=== PATIENT | female | born 1950 | race Caucasian/White ===

== ENCOUNTER 2016-09-03 13:41 | Inpatient (IN) | payer MEDICARE, MEDICAID ==
[~2016-09-03] VITALS: Ht 149.9 cm; Wt 63.0 kg
[~2016-09-03 13:41] MED LIST: ALBU18HF INH; GABA300C10 PO; HYDR-882 PO; LEVO100T5 PO; METF500T27 PO; OMEP40CA6 PO; PROP10TA PO; TRAM50TA2 PO
[2016-09-03] MEDS ORDERED: SODIUM CHLORIDE 0.9% 1,000 ML IV ONE (14:44)
[2016-09-03] MEDS ORDERED: ASPIRIN 81 MG TABLET CHEW PO ONE (15:00)
[2016-09-03] MEDS ORDERED: SODIUM CHLORIDE FLUSH 10ML SYR IVF ONE (15:00)
[2016-09-03] MEDS ORDERED: MECLIZINE CHEWABLE 25 MG TAB PO ONE (15:00)
[2016-09-03] MEDS ORDERED: SODIUM CHLORIDE 0.9% 1,000ML IVBOLUS ONE (15:00)
[2016-09-03 15:01] LABS: HEMOGLOBIN 15.2 g/dL (11.7-16.4)
[2016-09-03] MEDS ORDERED: MECLIZINE CHEWABLE 25 MG TAB ONE (15:03)
[2016-09-03] MEDS ORDERED: ASPIRIN 81 MG TABLET CHEW ONE (15:04)
[2016-09-03 15:13] LABS: ASPARTATE AMINO TRANSFERASE 20 U/L (15-37); BLOOD UREA NITROGEN 13 mg/dL (7-18)
[2016-09-03 15:19] LABS: IS PT STATUS REG ER OR PRE ER? YES
[2016-09-03] MEDS ORDERED: INSULIN REGULAR 100 UNITS/ML, 3ML VIAL IVPush ONE (16:00)
[2016-09-03] MEDS ORDERED: INSULIN SINGLE DOSE, ER SQ-INSULIN ONE (16:10)
[2016-09-03] MEDS ORDERED: [UNRECOGNIZED DRUG - REMARK] PO (16:53)
[2016-09-03] MEDS ORDERED: ENOXAPARIN 40 MG/0.4 ML SQ SCH (18:30)
[2016-09-03] MEDS ORDERED: LORazepam 2 MG/ML, 1ML IVPush PRN (18:30)
[2016-09-03] MEDS ORDERED: MORPHINE SULFATE 4 MG/ML, 1ML IVPush PRN (18:30)
[2016-09-03] MEDS ORDERED: ACETAMINOPHEN 325 MG TABLET PO PRN (18:30)
[2016-09-03] MEDS ORDERED: BISACODYL 10 MG SUPP PR PRN (18:30)
[2016-09-03] MEDS ORDERED: DOCUSATE 100 MG CAPSULE PO PRN (18:30)
[2016-09-03 18:48] VITALS: BP 137/64
[2016-09-03] MEDS: SODIUM CHLORIDE 0.9% 1,000 ML IV SCH (18:50)
[2016-09-03] MEDS ORDERED: ALBUTEROL SULFATE 2.5 MG/3 ML NPPB PRN (19:00)
[2016-09-03 19:11] VITALS: BP 130/80
[2016-09-03 19:31] LABS: IS PT STATUS REG ER OR PRE ER? NO
[2016-09-03] MEDS: INSULIN REGULAR 100 UNITS/ML, 3ML VIAL SQ-INSULIN SCH (21:00)
[2016-09-03] MEDS ORDERED: PROPRANOLOL 10 MG TABLET PO SCH (21:00)
[2016-09-03] MEDS: GABAPENTIN 300 MG CAPSULE PO SCH (21:19)
[2016-09-03] MEDS: metFORMIN 500 MG TABLET PO SCH (21:19)
[2016-09-04] MEDS: SODIUM CHLORIDE 0.9% 1,000 ML IV SCH (00:48)
[2016-09-04 01:00] LABS: IS PT STATUS REG ER OR PRE ER? NO
[2016-09-04 02:41] VITALS: BP 103/62
[2016-09-04 05:32] LABS: HEMOGLOBIN 13.3 g/dL (11.7-16.4)
[2016-09-04 06:00] LABS: ASPARTATE AMINO TRANSFERASE 12 U/L (15-37); BLOOD UREA NITROGEN 12 mg/dL (7-18)
[2016-09-04] MEDS ORDERED: ASPIRIN 325 MG TABLET EC PO SCH (06:00)
[2016-09-04] MEDS: INSULIN REGULAR 100 UNITS/ML, 3ML VIAL SQ-INSULIN SCH ×2 (07:03→11:55)
[2016-09-04] MEDS: metFORMIN 500 MG TABLET PO SCH (07:44)
[2016-09-04] MEDS: GABAPENTIN 300 MG CAPSULE PO SCH (07:49)
[2016-09-04 08:24] VITALS: BP 126/79
[2016-09-04] MEDS ORDERED: REGADENOSON 0.4 MG/5 ML SYRINGE ONE (08:24)
[2016-09-04] MEDS ORDERED: LEVOTHYROXINE 100 MCG TABLET PO SCH (09:00)
[2016-09-04] MEDS ORDERED: OMEPRAZOLE 20 MG CAPSULE.DR PO SCH (09:00)
[2016-09-04 13:37] VITALS: BP 125/76
[2016-09-04] MEDS ORDERED: ASPI-496 PO (13:44)
== END 2016-09-04 15:12 | disposition home or self-care (01) | DRG 638 ==
LOC: ED 14:58 → EDIP 16:16 → 5SO 18:38
PROVIDERS: ADMIT Internal Medicine; ATTEND Internal Medicine
DX: E11.649 Type 2 diabetes mellitus with hypoglycemia without coma (principal); E87.1 Hypo-osmolality and hyponatremia; E78.5 Hyperlipidemia, unspecified; E03.9 Hypothyroidism, unspecified; G89.29 Other chronic pain; M54.9 Dorsalgia, unspecified; K59.09 Other constipation; R25.1 Tremor, unspecified; D72.829 Elevated white blood cell count, unspecified; E11.42 Type 2 diabetes mellitus with diabetic polyneuropathy; K59.00 Constipation, unspecified; Z80.6 Family history of leukemia; Z90.89 Acquired absence of other organs; Z88.0 Allergy status to penicillin; M94.0 Chondrocostal junction syndrome [Tietze]; E86.0 Dehydration
CPT/HCPCS: 36415; 70450; 71010; 78452; 80053; 80061; 81003; 82962; 83735; 84100; 84443; 84484; 85025; 85379; 93005; 93017; 96361; 96374; J1650; J1815; J2785; A9502; C9898; J7030

== ENCOUNTER → 2017-02-14 | Outpatient (CLI) | payer MEDICARE, MEDICAID ==
[~2017-02-14] MED LIST changes: +ASPI-496 PO; +[UNRECOGNIZED DRUG - REMARK] PO
== END | disposition home or self-care (01) ==
LOC: CFH 12:49
PROVIDERS: ATTEND Internal Medicine
DX: M79.672 Pain in left foot (principal); M79.605 Pain in left leg

== ENCOUNTER 2017-06-26 15:38 | Observation (INO) | payer MEDICARE, MEDICAID ==
[~2017-06-26] VITALS: Ht 149.9 cm; Wt 61.4 kg
[2017-06-26] MEDS ORDERED: ALBUTEROL SULFATE 2.5 MG/3 ML ONE ×2 (16:26→18:51)
[2017-06-26] MEDS ORDERED: ALBUTEROL SULFATE 2.5 MG/3 ML NPPB ONE (16:30)
[2017-06-26 16:59] LABS: BASOPHILS # (AUTO) 0.05 x10^3/uL (0-0.1); BASOPHILS % (AUTO) 0 % (0-1); EOSINOPHILS # (AUTO) 0.21 x10^3/uL (0-0.4); EOSINOPHILS % (AUTO) 2 % (1-7); LYMPHOCYTES # (AUTO) 4.32 x10^3/uL (1-3.4); LYMPHOCYTES % (AUTO) 34 % (22-44); MD NO; MEAN CORPUSCULAR HEMOGLOBIN 27.9 pg (27.0-34.8); MEAN CORPUSCULAR HGB CONC 32.7 g/dL (32.4-35.8); MEAN CORPUSCULAR VOLUME 85.4 fL (80-100); MEAN PLATELET VOLUME 9.5 fL (7.4-10.4); MONOCYTES # (AUTO) 0.64 x10^3/uL (0.2-0.8); MONOCYTES % (AUTO) 5 % (2-9); NEUTROPHILS # (AUTO) 7.48 x10^3/uL (1.8-6.8); NEUTROPHILS % (AUTO) 59 % (42-75); PLATELET COUNT 345 x10^3/uL (130-400); RED BLOOD COUNT 5.75 x10^6/uL (3.82-5.3); RED CELL DISTRIBUTION WIDTH 14.8 % (9.6-15.2)
[2017-06-26 17:06] LABS: ALANINE AMINOTRANSFERASE 34 U/L (12-78); ALBUMIN 3.8 g/dL (3.4-5.0); ANION GAP 11 mmol/L (5-15); CALCIUM 8.9 mg/dL (8.5-10.1); CHLORIDE 108 mmol/L (98-107); CREATININE 0.79 mg/dL (0.55-1.02)
[2017-06-26 17:11] LABS: ALKALINE PHOSPHATASE 168 U/L (45-117); BILIRUBIN,TOTAL 0.3 mg/dL (0.2-1.0); TOTAL PROTEIN 7.4 g/dL (6.4-8.2); TROPONIN I < 0.015 ng/mL (0.000-0.045)
[2017-06-26] MEDS ORDERED: ACETAMINOPHEN 325 MG TABLET PO PRN (23:30)
[2017-06-26] MEDS ORDERED: ONDANSETRON 2MG/ML, 2ML IVPush PRN (23:30)
[2017-06-26] MEDS ORDERED: LACTATED RINGERS 1,000 ML IV SCH (23:30)
[2017-06-26 23:33] VITALS: BP 132/77
[2017-06-26] MEDS ORDERED: ALBUTEROL SULFATE 2.5 MG/3 ML NPPB PRN (23:45)
[2017-06-27] MEDS: GABAPENTIN 300 MG CAPSULE PO SCH ×3 (00:10→21:05)
[2017-06-27] MEDS: methylPREDNISolone SOD SUCC 40 MG/ML IV SCH ×2 (00:10→07:21)
[2017-06-27] MEDS: ENOXAPARIN 40 MG/0.4 ML SQ SCH ×2 (00:35→23:37)
[2017-06-27 02:50] VITALS: BP 113/60
[2017-06-27 05:57] LABS: BASOPHILS # (AUTO) 0.04 x10^3/uL (0-0.1); BASOPHILS % (AUTO) 0 % (0-1); EOSINOPHILS % (AUTO) 0 % (1-7); LYMPHOCYTES # (AUTO) 1.72 x10^3/uL (1-3.4); LYMPHOCYTES % (AUTO) 15 % (22-44); MD NO; MEAN CORPUSCULAR HEMOGLOBIN 28.3 pg (27.0-34.8); MEAN CORPUSCULAR HGB CONC 33.5 g/dL (32.4-35.8); MEAN CORPUSCULAR VOLUME 84.6 fL (80-100); MEAN PLATELET VOLUME 9.5 fL (7.4-10.4); MONOCYTES # (AUTO) 0.14 x10^3/uL (0.2-0.8); MONOCYTES % (AUTO) 1 % (2-9); NEUTROPHILS # (AUTO) 9.57 x10^3/uL (1.8-6.8); NEUTROPHILS % (AUTO) 84 % (42-75); PLATELET COUNT 309 x10^3/uL (130-400); RED BLOOD COUNT 5.48 x10^6/uL (3.82-5.3); RED CELL DISTRIBUTION WIDTH 14.9 % (9.6-15.2)
[2017-06-27 05:58] LABS: ANION GAP 17 mmol/L (5-15); CHLORIDE 104 mmol/L (98-107)
[2017-06-27 06:01] LABS: CALCIUM 9.1 mg/dL (8.5-10.1); CREATININE 1.04 mg/dL (0.55-1.02)
[2017-06-27 06:35] VITALS: BP 123/71
[2017-06-27] MEDS: metFORMIN XR 500 MG TAB.ER.24H PO SCH ×2 (08:32→21:05)
[2017-06-27] MEDS: OMEPRAZOLE 20 MG CAPSULE.DR PO SCH (08:32)
[2017-06-27] MEDS: LEVOTHYROXINE 100 MCG TABLET PO SCH (08:32)
[2017-06-27] MEDS: ASPIRIN 81 MG TABLET EC PO SCH (08:32)
[2017-06-27] MEDS: INSULIN LISPRO 100 UNITS/ML, PEN SQ-INSULIN SCH ×4 (09:17→21:06)
[2017-06-27 12:00] VITALS: BP 126/85
[2017-06-27 20:09] VITALS: BP 126/69
[2017-06-27] MEDS ORDERED: PROPRANOLOL 10 MG TABLET PO SCH (21:00)
[2017-06-27] MEDS ORDERED: LACTATED RINGERS 1,000 ML IV SCH (23:30)
[2017-06-28 02:45] VITALS: BP 108/68
[2017-06-28 06:05] LABS: ANION GAP 9 mmol/L (5-15); CALCIUM 9.5 mg/dL (8.5-10.1); CHLORIDE 108 mmol/L (98-107)
[2017-06-28 07:00] VITALS: BP 120/72
[2017-06-28] MEDS: INSULIN LISPRO 100 UNITS/ML, PEN SQ-INSULIN SCH ×3 (08:17→12:39)
[2017-06-28] MEDS: ASPIRIN 81 MG TABLET EC PO SCH (08:18)
[2017-06-28] MEDS: metFORMIN XR 500 MG TAB.ER.24H PO SCH (08:18)
[2017-06-28] MEDS: LEVOTHYROXINE 100 MCG TABLET PO SCH (08:18)
[2017-06-28] MEDS: GABAPENTIN 300 MG CAPSULE PO SCH (08:18)
[2017-06-28] MEDS: OMEPRAZOLE 20 MG CAPSULE.DR PO SCH (08:18)
[2017-06-28] MEDS ORDERED: PRED20TA PO (09:35)
[2017-06-28] MEDS ORDERED: ALBU18HF INH (09:35)
== END 2017-06-28 14:21 | disposition home or self-care (01) ==
LOC: ED 19:26 → INTOOBSV 22:32 → 3NE 22:32 → SUATTDRO 23:28 → DCLOUNGE 06-28 14:16
PROVIDERS: ADMIT Hospitalist; ATTEND Hospitalist
DX: R07.89 Other chest pain (principal); R06.02 Shortness of breath; R42 Dizziness and giddiness; E03.9 Hypothyroidism, unspecified; E11.40 Type 2 diabetes mellitus with diabetic neuropathy, unspecified; E78.5 Hyperlipidemia, unspecified; D72.829 Elevated white blood cell count, unspecified; N28.9 Disorder of kidney and ureter, unspecified; Z77.22 Contact with and (suspected) exposure to environmental tobacco smoke (acute) (chronic)
CPT/HCPCS: 36415; 71045; 80048; 80053; 82947; 82962; 83735; 84100; 84484; 85025; 93306; 94640; 96361; 96372; 96374; 96376; 99285; G0378; J1650; J1815; J2920; J7120; J7512; J7613

== ENCOUNTER 2018-08-30 23:26 | Inpatient (IN) | payer MEDICARE, MEDICAID ==
[~2018-08-30] VITALS: Ht 149.9 cm; Wt 71.1 kg
[~2018-08-30 23:26] MED LIST changes: +HYDR-3653 PO; -HYDR-882 PO; +PRED20TA PO; -PROP10TA PO; +PROP10TA16 PO
--- NOTE | 2018-08-30 23:54 | NUR ---
Lab at bedside.
--- NOTE | 2018-08-30 23:58 | NUR ---
Pt sitting on gurney, moaning and c/o pain. Pt states that appx 2 hours she started having severe abdominal pain to the right side, pt describes it as constant but sometimes more sharp. Pt states that she immediately vomited and had diarrhea when the pain started. Pt still c/o nausea but has not vomited again. Pt states that she had diarrhea persistently prior to coming in to ED. Pt denies any urinary symptoms. Pt denies any previous surgeries or abdominal history. Pt's daughter, Ana, at bedside with pt.
[2018-08-31] MEDS ORDERED: ONDANSETRON 2MG/ML, 2ML IVPush ONE
[2018-08-31 00:01] LABS: MEAN CORPUSCULAR HEMOGLOBIN 29.3 pg (27.0-34.8); MEAN CORPUSCULAR HGB CONC 33.5 g/dL (32.4-35.8); MEAN CORPUSCULAR VOLUME 87.6 fL (80-100); MEAN PLATELET VOLUME 9.2 fL (7.4-10.4); PLATELET COUNT 277 x10^3/uL (130-400); RED BLOOD COUNT 5.42 x10^6/uL (3.82-5.3); RED CELL DISTRIBUTION WIDTH 15.4 % (9.6-15.2)
--- NOTE | 2018-08-31 00:10 | NUR ---
Ailyn DU, at bedside to reassess pt. IVF bolus and BC x 2 added to orders.
[2018-08-31 00:13] LABS: ALANINE AMINOTRANSFERASE 39 U/L (12-78); ALBUMIN 4.1 g/dL (3.4-5.0); ANION GAP 8 mmol/L (5-15); CALCIUM 9.1 mg/dL (8.5-10.1); CHLORIDE 106 mmol/L (98-107); CREATININE 1.06 mg/dL (0.55-1.02)
[2018-08-31 00:15] LABS: MD YES
[2018-08-31 00:16] LABS: BAND#(MANUAL) 2.67 x10^3/uL; BANDS%(MANUAL) 14 % (0-7); LYMPH#(MANUAL) 1.34 x10^3/uL (1-3.4); LYMPHS% (MANUAL) 7 % (22-44); MONOS#(MANUAL) 0.96 x10^3/uL (0.3-2.7); MONOS% (MANUAL) 5 % (2-9); SEG#(MANUAL) 14.13 x10^3/uL (1.8-6.8); SEGS% (MANUAL) 74 % (42-75)
[2018-08-31 00:17] LABS: <PLATELET ESTIMATE> ADEQUATE; <PLT MORPHOLOGY> NORMAL PLT MORPH; <RBC MORPHOLOGY> NORMAL
[2018-08-31 00:18] LABS: ALKALINE PHOSPHATASE 197 U/L (45-117); TOTAL PROTEIN 7.3 g/dL (6.4-8.2); TROPONIN I < 0.015 ng/mL (0.000-0.045)
[2018-08-31] MEDS ORDERED: MORPHINE SULFATE 4 MG/ML, 1ML ONE ×2 (00:18→00:34)
[2018-08-31] MEDS ORDERED: ONDANSETRON 2MG/ML, 2ML ONE ×2 (00:18→14:51)
--- NOTE | 2018-08-31 00:22 | NUR ---
PIV started, BC drawn. Lab at bedside for 2nd set of BC. IVF to be started and pt to be medicated per MAR.
[2018-08-31] MEDS: MORPHINE SULFATE 4 MG/ML, 1ML IVPush PRN ×2 (00:25→00:41)
[2018-08-31] MEDS ORDERED: SODIUM CHLORIDE 0.9% 1,000ML IVBOLUS ONE (00:30)
--- NOTE | 2018-08-31 00:41 | NUR ---
Pt medicated with 2nd dose of morphine. Pt to imaging, with tech, via marisol.
--- NOTE | 2018-08-31 00:52 | NUR ---
Pt back to room from imaging.
[2018-08-31] MEDS ORDERED: HYDROmorphone 1 MG/ML, 1ML INJ ONE (01:19)
--- NOTE | 2018-08-31 01:26 | NUR ---
Pt medicated per MAR. Urine sample collected.
--- NOTE | 2018-08-31 01:28 | NUR ---
Pt to imaging, with tech, via gudayday.
[2018-08-31] MEDS: HYDROmorphone 2 MG/ML, 1ML IVPush PRN ×7 (01:33→20:57)
[2018-08-31] MEDS ORDERED: HYDROmorphone 2 MG/ML, 1ML ONE ×2 (02:20→03:30)
--- NOTE | 2018-08-31 02:25 | NUR ---
Pt medicated, per AUG, with 2nd dose of dilaudid.
[2018-08-31] MEDS ORDERED: CEFOTETAN PMX 1GM/50ML 50 ML IV ONE (02:30)
[2018-08-31 02:44] LABS: CULTURE INDICATED? NO; MICROSCOPIC NOT IND
[2018-08-31] MEDS ORDERED: CEFOTETAN PMX 1GM/50ML 50 ML ONE (02:44)
--- NOTE | 2018-08-31 02:50 | NUR ---
Telephone SBAR report given to RNMarleen. Pt and daughter made aware of new room assignment.
--- NOTE | 2018-08-31 02:50 | NUR ---
SILVER RN: PT MEDICATED PER EMAR. 5 RIGHTS ADDRESSED.
[2018-08-31] MEDS ORDERED: LABETALOL 5MG/ML, 20ML IVPush PRN (03:30)
[2018-08-31] MEDS ORDERED: HYDROmorphone 1 MG/ML, 1ML INJ IV ONE (03:30)
[2018-08-31] MEDS ORDERED: ACETAMINOPHEN 325 MG TABLET PO PRN (03:30)
[2018-08-31 03:36] VITALS: BP 147/84
[2018-08-31 03:47] LABS: PROTHROMBIN TIME 10.5 Seconds (9.6-11.5)
[2018-08-31] MEDS ORDERED: PIPERACILLIN/TAZO/PMX 3.375GM 50 ML IV SCH (04:00)
[2018-08-31] MEDS: LACTATED RINGERS 1,000 ML IV SCH ×3 (04:01→17:07)
[2018-08-31] MEDS ORDERED: OMNIPAQUE 350 MG/ML, 100ML BOTTLE ONE (05:50)
[2018-08-31 08:14] VITALS: BP 140/84
[2018-08-31 08:40] LABS: ALANINE AMINOTRANSFERASE 35 U/L (12-78); ALBUMIN 3.6 g/dL (3.4-5.0); ANION GAP 12 mmol/L (5-15); CALCIUM 8.5 mg/dL (8.5-10.1); CHLORIDE 112 mmol/L (98-107)
[2018-08-31 08:42] LABS: ALKALINE PHOSPHATASE 177 U/L (45-117); BILIRUBIN,TOTAL 0.6 mg/dL (0.2-1.0); TOTAL PROTEIN 6.9 g/dL (6.4-8.2)
[2018-08-31] MEDS: INSULIN LISPRO 100 UNITS/ML, PEN SQ-INSULIN SCH ×4 (09:14→21:00)
[2018-08-31] MEDS: METRONIDAZOLE PMX 500MG/100ML 100 ML IV SCH ×2 (09:14→17:07)
[2018-08-31] MEDS ORDERED: LEVOFLOXACIN/PMX 750MG/150ML 150 ML IV SCH (10:00)
[2018-08-31 10:04] LABS: MEAN CORPUSCULAR HEMOGLOBIN 28.7 pg (27.0-34.8); MEAN CORPUSCULAR HGB CONC 32.6 g/dL (32.4-35.8); MEAN CORPUSCULAR VOLUME 87.9 fL (80-100); MEAN PLATELET VOLUME 9.4 fL (7.4-10.4); PLATELET COUNT 248 x10^3/uL (130-400); RED BLOOD COUNT 5.44 x10^6/uL (3.82-5.3)
[2018-08-31] MEDS ORDERED: PROPRANOLOL 40 MG TABLET ONE (10:28)
[2018-08-31] MEDS ORDERED: PROPRANOLOL 10 MG TABLET PO SCH ×2 (10:30→21:00)
[2018-08-31 10:36] LABS: BASOPHILS # (AUTO) 0.01 x10^3/uL (0-0.1); BASOPHILS % (AUTO) 0 % (0-1); EOSINOPHILS % (AUTO) 0 % (1-7); LYMPHOCYTES # (AUTO) 0.91 x10^3/uL (1-3.4); LYMPHOCYTES % (AUTO) 6 % (22-44); MD SCAN; MONOCYTES # (AUTO) 0.53 x10^3/uL (0.2-0.8); MONOCYTES % (AUTO) 3 % (2-9); NEUTROPHILS % (AUTO) 91 % (42-75)
[2018-08-31 11:00] VITALS: BP 118/67
[2018-08-31] MEDS ORDERED: PHENYLEPHRINE 10 MG/ML ONE (11:09)
[2018-08-31] MEDS ORDERED: FENTANYL PF 250 MCG/5ML ONE (12:27)
[2018-08-31] MEDS ORDERED: BUPIVACAINE/PF-EPI 0.5% 1:200K ONE (12:39)
[2018-08-31] MEDS ORDERED: BUPIVACAINE/PF-EPI 0.5% 1:200K INFIL ONE (13:16)
[2018-08-31] MEDS ORDERED: MIDAZOLAM 1 MG/ML, 2ML IV PRN (13:30)
[2018-08-31] MEDS ORDERED: PROMETHAZINE 25 MG/ML, 1ML IV PRN (13:30)
[2018-08-31] MEDS ORDERED: OXYcodone 5 MG/5 ML ORAL.SOL UDC PO PRN (13:30)
[2018-08-31] MEDS ORDERED: MEPERIDINE/PF 25MG/0.5ML IVPush PRN (13:30)
[2018-08-31] MEDS ORDERED: HYDROmorphone 2 MG/ML, 1ML IVPush PRN (13:30)
[2018-08-31] MEDS ORDERED: ALBUTEROL/IPRATROPIUM 2.5MG/0.5MG, 3 ML NPPB PRN (13:30)
[2018-08-31] MEDS ORDERED: SCOPOLAMINE PATCH, 1.5MG PATCH.TD72 TD PRN (13:30)
[2018-08-31] MEDS ORDERED: METOPROLOL 1 MG/ML, 5ML IV PRN (13:30)
[2018-08-31] MEDS ORDERED: ONDANSETRON 2MG/ML, 2ML IV PRN (13:30)
[2018-08-31] MEDS ORDERED: THROMBIN 20,000 UNIT VIAL TP ONE (14:17)
[2018-08-31] MEDS ORDERED: ROCURONIUM 10MG/ML,5ML ONE (14:51)
[2018-08-31] MEDS ORDERED: NEOSTIGMINE 1 MG/ML, 10ML ONE (14:51)
[2018-08-31] MEDS ORDERED: PROPOFOL 10 MG/ML, 20ML ONE (14:51)
[2018-08-31] MEDS ORDERED: SUCCINYLCHOLINE 20 MG/ML, 10ML ONE (14:51)
[2018-08-31] MEDS ORDERED: DEXAMETHASONE 4 MG/ML, 1ML ONE (14:51)
[2018-08-31] MEDS ORDERED: GLYCOPYRROLATE 0.2MG/1ML, 5ML ONE (14:51)
[2018-08-31] MEDS ORDERED: ACETAMINOPHEN 650 MG/20.3 ML UDC ONE (15:11)
[2018-08-31] MEDS ORDERED: OXYcodone 5 MG/5 ML ORAL.SOL UDC ONE (15:11)
[2018-08-31] MEDS ORDERED: FENTANYL PF 100 MCG/2ML ONE ×2 (15:11→16:03)
[2018-08-31] MEDS: FENTANYL PF 100 MCG/2ML IV PRN ×3 (15:15→15:30)
[2018-08-31 16:25] VITALS: BP 94/67
[2018-08-31] MEDS: ACETAMINOPHEN 500 MG TABLET PO SCH ×2 (16:30→20:57)
[2018-08-31 18:51] VITALS: BP 100/59
[2018-08-31] MEDS: OXYcodone IR 5MG TABLET PO PRN ×2 (19:37→22:49)
[2018-08-31 23:00] VITALS: BP 113/86
[2018-09-01] MEDS: METRONIDAZOLE PMX 500MG/100ML 100 ML IV SCH ×3 (01:08→16:20)
[2018-09-01] MEDS: LACTATED RINGERS 1,000 ML IV SCH ×3 (01:08→20:48)
[2018-09-01 03:44] VITALS: BP 99/64
[2018-09-01] MEDS: OXYcodone IR 5MG TABLET PO PRN ×4 (03:58→20:47)
[2018-09-01] MEDS: ACETAMINOPHEN 500 MG TABLET PO SCH ×2 (03:58→10:53)
[2018-09-01 06:14] LABS: CALCIUM 8.3 mg/dL (8.5-10.1); CHLORIDE 113 mmol/L (98-107); MEAN CORPUSCULAR HEMOGLOBIN 28.9 pg (27.0-34.8); MEAN CORPUSCULAR HGB CONC 32.6 g/dL (32.4-35.8); MEAN CORPUSCULAR VOLUME 88.4 fL (80-100); MEAN PLATELET VOLUME 9.8 fL (7.4-10.4); PLATELET COUNT 254 x10^3/uL (130-400); RED BLOOD COUNT 4.32 x10^6/uL (3.82-5.3)
[2018-09-01 06:19] LABS: ALANINE AMINOTRANSFERASE 109 U/L (12-78); ALBUMIN 2.5 g/dL (3.4-5.0); ALKALINE PHOSPHATASE 105 U/L (45-117); ANION GAP 9 mmol/L (5-15); BILIRUBIN,TOTAL 0.6 mg/dL (0.2-1.0); CHOL/HDL RATIO 3.7; CHOLESTEROL, TOTAL 82 mg/dL (140-239); CREATININE 0.79 mg/dL (0.55-1.02); HDL CHOL % 27 % (28-40); HDL CHOLESTEROL (DIRECT) 22 mg/dL (40-60); LDL CHOLESTEROL,CALCULATED 44 mg/dL (54-169); TOTAL PROTEIN 5.7 g/dL (6.4-8.2); TRIGLYCERIDES 78 mg/dL (50-200); VLDL CHOLESTEROL 16 mg/dL (0-25)
[2018-09-01 06:41] LABS: MD YES
[2018-09-01 06:43] LABS: BAND#(MANUAL) 1.84 x10^3/uL; BANDS%(MANUAL) 10 % (0-7); LYMPH#(MANUAL) 0.55 x10^3/uL (1-3.4); LYMPHS% (MANUAL) 3 % (22-44); MONOS#(MANUAL) 0.37 x10^3/uL (0.3-2.7); MONOS% (MANUAL) 2 % (2-9); SEG#(MANUAL) 15.64 x10^3/uL (1.8-6.8); SEGS% (MANUAL) 85 % (42-75)
[2018-09-01 06:44] LABS: <PLATELET ESTIMATE> ADEQUATE; <PLT MORPHOLOGY> NORMAL PLT MORPH; <RBC MORPHOLOGY> NORMAL
[2018-09-01] MEDS: INSULIN LISPRO 100 UNITS/ML, PEN SQ-INSULIN SCH ×4 (06:50→21:17)
[2018-09-01 07:40] VITALS: BP 103/53
[2018-09-01] MEDS: ENOXAPARIN 40 MG/0.4 ML SQ SCH (12:11)
[2018-09-01] MEDS ORDERED: ACETAMINOPHEN 500 MG TABLET PO PRN (12:30)
[2018-09-01 13:57] VITALS: BP 99/58
[2018-09-01] MEDS: PROPRANOLOL 10 MG TABLET PO SCH (20:48)
[2018-09-01 20:56] VITALS: BP 132/71
[2018-09-02] MEDS: METRONIDAZOLE PMX 500MG/100ML 100 ML IV SCH ×3 (01:10→17:29)
[2018-09-02] MEDS: OXYcodone IR 5MG TABLET PO PRN ×5 (01:11→20:44)
[2018-09-02 01:14] VITALS: BP 106/59
[2018-09-02] MEDS: LACTATED RINGERS 1,000 ML IV SCH ×4 (05:06→23:29)
[2018-09-02 05:46] LABS: BASOPHILS # (AUTO) 0.02 x10^3/uL (0-0.1); BASOPHILS % (AUTO) 0 % (0-1); EOSINOPHILS % (AUTO) 0 % (1-7); LYMPHOCYTES # (AUTO) 1.47 x10^3/uL (1-3.4); LYMPHOCYTES % (AUTO) 9 % (22-44); MD NO; MEAN CORPUSCULAR HGB CONC 33.8 g/dL (32.4-35.8); MEAN CORPUSCULAR VOLUME 88.7 fL (80-100); MEAN PLATELET VOLUME 9.5 fL (7.4-10.4); MONOCYTES # (AUTO) 0.26 x10^3/uL (0.2-0.8); MONOCYTES % (AUTO) 2 % (2-9); NEUTROPHILS # (AUTO) 14.34 x10^3/uL (1.8-6.8); NEUTROPHILS % (AUTO) 89 % (42-75); PLATELET COUNT 223 x10^3/uL (130-400); RED BLOOD COUNT 3.75 x10^6/uL (3.82-5.3)
[2018-09-02 05:49] LABS: ALANINE AMINOTRANSFERASE 64 U/L (12-78); ALBUMIN 2.1 g/dL (3.4-5.0); ANION GAP 5 mmol/L (5-15); CALCIUM 8.5 mg/dL (8.5-10.1); CHLORIDE 111 mmol/L (98-107)
[2018-09-02 05:50] LABS: ALKALINE PHOSPHATASE 102 U/L (45-117); BILIRUBIN,TOTAL 0.6 mg/dL (0.2-1.0); TOTAL PROTEIN 5.3 g/dL (6.4-8.2)
[2018-09-02] MEDS: INSULIN LISPRO 100 UNITS/ML, PEN SQ-INSULIN SCH ×4 (07:53→20:44)
[2018-09-02 08:07] VITALS: BP 112/59
[2018-09-02] MEDS ORDERED: LEVOFLOXACIN/PMX 750MG/150ML 150 ML IV SCH (10:00)
[2018-09-02] MEDS ORDERED: POTASSIUM CHLORIDE 20 MEQ TAB.ER.PRT PO ONE (10:30)
[2018-09-02] MEDS: ENOXAPARIN 40 MG/0.4 ML SQ SCH (12:21)
[2018-09-02 13:32] VITALS: BP 105/71
[2018-09-02] MEDS: ONDANSETRON 2MG/ML, 2ML IVPush PRN ×2 (14:10→20:47)
[2018-09-02 20:23] VITALS: BP 104/60
[2018-09-02] MEDS: PROPRANOLOL 10 MG TABLET PO SCH (20:41)
[2018-09-03] MEDS: METRONIDAZOLE PMX 500MG/100ML 100 ML IV SCH ×4 (01:04→20:40)
[2018-09-03] MEDS: OXYcodone IR 5MG TABLET PO PRN ×6 (01:04→20:39)
[2018-09-03 02:19] VITALS: BP 106/62
[2018-09-03 02:53] LABS: CLOSTRIDIUM DIFFICILE ANTIGEN NEGATIVE; CLOSTRIDIUM DIFFICILE TOXIN NEGATIVE (Negative)
[2018-09-03 05:35] LABS: MEAN CORPUSCULAR HEMOGLOBIN 29.2 pg (27.0-34.8); MEAN CORPUSCULAR HGB CONC 33.3 g/dL (32.4-35.8); MEAN CORPUSCULAR VOLUME 87.7 fL (80-100); MEAN PLATELET VOLUME 9.5 fL (7.4-10.4); PLATELET COUNT 230 x10^3/uL (130-400); RED BLOOD COUNT 3.44 x10^6/uL (3.82-5.3)
[2018-09-03 05:48] LABS: CALCIUM 8.2 mg/dL (8.5-10.1); CHLORIDE 111 mmol/L (98-107)
[2018-09-03 05:54] LABS: ALANINE AMINOTRANSFERASE 49 U/L (12-78); ALKALINE PHOSPHATASE 102 U/L (45-117); ANION GAP 7 mmol/L (5-15); BILIRUBIN,TOTAL 0.5 mg/dL (0.2-1.0); CREATININE 0.49 mg/dL (0.55-1.02); TOTAL PROTEIN 5.2 g/dL (6.4-8.2)
[2018-09-03 06:08] LABS: BASOPHILS # (AUTO) 0.01 x10^3/uL (0-0.1); BASOPHILS % (AUTO) 0 % (0-1); EOSINOPHILS # (AUTO) 0.06 x10^3/uL (0-0.4); EOSINOPHILS % (AUTO) 0 % (1-7); LYMPHOCYTES # (AUTO) 2.62 x10^3/uL (1-3.4); LYMPHOCYTES % (AUTO) 16 % (22-44); MD SCAN; MONOCYTES # (AUTO) 0.51 x10^3/uL (0.2-0.8); MONOCYTES % (AUTO) 3 % (2-9); NEUTROPHILS # (AUTO) 13.21 x10^3/uL (1.8-6.8); NEUTROPHILS % (AUTO) 81 % (42-75)
[2018-09-03] MEDS: INSULIN LISPRO 100 UNITS/ML, PEN SQ-INSULIN SCH ×4 (07:04→20:43)
[2018-09-03 07:38] VITALS: BP 98/61
[2018-09-03] MEDS: LACTATED RINGERS 1,000 ML IV SCH (08:42)
[2018-09-03] MEDS: ENOXAPARIN 40 MG/0.4 ML SQ SCH (11:56)
[2018-09-03] MEDS: CEFTRIAXONE PMX 2GM/50ML 50 ML IV SCH (11:56)
[2018-09-03 14:43] VITALS: BP 109/59
[2018-09-03] MEDS: PROPRANOLOL 10 MG TABLET PO SCH (20:39)
[2018-09-03 20:50] VITALS: BP 123/58
[2018-09-04 01:33] VITALS: BP 122/65
[2018-09-04] MEDS: METRONIDAZOLE PMX 500MG/100ML 100 ML IV SCH ×2 (02:39→08:55)
[2018-09-04] MEDS: OXYcodone IR 5MG TABLET PO PRN ×2 (03:53→20:06)
[2018-09-04 05:08] LABS: ALANINE AMINOTRANSFERASE 33 U/L (12-78); ALBUMIN 1.8 g/dL (3.4-5.0); ANION GAP 10 mmol/L (5-15); CALCIUM 7.9 mg/dL (8.5-10.1); CHLORIDE 110 mmol/L (98-107); CREATININE 0.37 mg/dL (0.55-1.02)
[2018-09-04 05:11] LABS: ALKALINE PHOSPHATASE 103 U/L (45-117); BILIRUBIN,TOTAL 0.4 mg/dL (0.2-1.0); TOTAL PROTEIN 5.1 g/dL (6.4-8.2)
[2018-09-04 06:28] LABS: MEAN CORPUSCULAR HEMOGLOBIN 28.9 pg (27.0-34.8); MEAN CORPUSCULAR HGB CONC 33.4 g/dL (32.4-35.8); MEAN CORPUSCULAR VOLUME 86.5 fL (80-100); MEAN PLATELET VOLUME 8.5 fL (7.4-10.4); PLATELET COUNT 262 x10^3/uL (130-400); RED BLOOD COUNT 3.81 x10^6/uL (3.82-5.3); RED CELL DISTRIBUTION WIDTH 16.4 % (9.6-15.2)
[2018-09-04 06:58] LABS: MD YES
[2018-09-04 07:02] LABS: BAND#(MANUAL) 0.98 x10^3/uL; BANDS%(MANUAL) 8 % (0-7); EOS#(MANUAL) 0.25 x10^3/uL (0.0-0.4); EOS% (MANUAL) 2 % (1-7); LYMPH#(MANUAL) 2.34 x10^3/uL (1-3.4); LYMPHS% (MANUAL) 19 % (22-44); METAMYELOCYTES# (MANUAL) 0.25 x10^3/uL (0-0); METAMYELOCYTES% (MANUAL) 2 % (0-1); MONOS#(MANUAL) 0.74 x10^3/uL (0.3-2.7); MONOS% (MANUAL) 6 % (2-9); SEG#(MANUAL) 7.75 x10^3/uL (1.8-6.8); SEGS% (MANUAL) 63 % (42-75)
[2018-09-04 07:03] LABS: <PLATELET ESTIMATE> ADEQUATE; <PLT MORPHOLOGY> NORMAL PLT MORPH; <RBC MORPHOLOGY> NORMAL
[2018-09-04] MEDS: INSULIN LISPRO 100 UNITS/ML, PEN SQ-INSULIN SCH ×4 (07:13→21:00)
[2018-09-04 08:12] VITALS: BP 130/62
[2018-09-04] MEDS: ONDANSETRON 2MG/ML, 2ML IVPush PRN (09:07)
[2018-09-04] MEDS: ENOXAPARIN 40 MG/0.4 ML SQ SCH (12:06)
[2018-09-04] MEDS: CEFTRIAXONE PMX 2GM/50ML 50 ML IV SCH (12:06)
[2018-09-04] MEDS ORDERED: POTASSIUM CHLORIDE 20 MEQ TAB.ER.PRT PO ONE (14:30)
[2018-09-04 14:49] VITALS: BP 117/73
[2018-09-04] MEDS: metroNIDAZOLE 500 MG TABLET PO SCH ×2 (14:55→20:05)
[2018-09-04] MEDS: GABAPENTIN 300 MG CAPSULE PO PRN (17:18)
[2018-09-04] MEDS ORDERED: GABAPENTIN 300 MG CAPSULE PO PRN (17:30)
[2018-09-04 20:50] VITALS: BP 127/71
[2018-09-04] MEDS: PROPRANOLOL 10 MG TABLET PO SCH (21:05)
[2018-09-05] MEDS: OXYcodone IR 5MG TABLET PO PRN ×4 (01:24→19:54)
[2018-09-05] MEDS: GABAPENTIN 300 MG CAPSULE PO PRN ×3 (01:24→19:55)
[2018-09-05 01:31] VITALS: BP 118/61
[2018-09-05] MEDS: metroNIDAZOLE 500 MG TABLET PO SCH ×2 (03:00→09:56)
[2018-09-05 05:23] LABS: MEAN CORPUSCULAR HEMOGLOBIN 29.4 pg (27.0-34.8); MEAN CORPUSCULAR HGB CONC 34.2 g/dL (32.4-35.8); MEAN CORPUSCULAR VOLUME 85.8 fL (80-100); MEAN PLATELET VOLUME 8.5 fL (7.4-10.4); PLATELET COUNT 303 x10^3/uL (130-400); RED BLOOD COUNT 3.82 x10^6/uL (3.82-5.3)
[2018-09-05 05:30] LABS: ALANINE AMINOTRANSFERASE 29 U/L (12-78); ALBUMIN 2.1 g/dL (3.4-5.0); ANION GAP 8 mmol/L (5-15); CALCIUM 7.9 mg/dL (8.5-10.1); CHLORIDE 109 mmol/L (98-107); CREATININE 0.42 mg/dL (0.55-1.02)
[2018-09-05 05:32] LABS: ALKALINE PHOSPHATASE 93 U/L (45-117); BILIRUBIN,TOTAL 0.4 mg/dL (0.2-1.0); TOTAL PROTEIN 5.2 g/dL (6.4-8.2)
[2018-09-05 05:59] LABS: BASOPHILS # (AUTO) 0.03 x10^3/uL (0-0.1); BASOPHILS % (AUTO) 0 % (0-1); EOSINOPHILS # (AUTO) 0.16 x10^3/uL (0-0.4); EOSINOPHILS % (AUTO) 1 % (1-7); LYMPHOCYTES # (AUTO) 3.74 x10^3/uL (1-3.4); LYMPHOCYTES % (AUTO) 26 % (22-44); MD SCAN; MONOCYTES # (AUTO) 1.47 x10^3/uL (0.2-0.8); MONOCYTES % (AUTO) 10 % (2-9); NEUTROPHILS # (AUTO) 9.06 x10^3/uL (1.8-6.8); NEUTROPHILS % (AUTO) 63 % (42-75)
[2018-09-05] MEDS: INSULIN LISPRO 100 UNITS/ML, PEN SQ-INSULIN SCH ×4 (07:00→19:57)
[2018-09-05] MEDS ORDERED: POTASSIUM CHLORIDE 20 MEQ TAB.ER.PRT PO ONE ×2 (08:00→11:00)
[2018-09-05 09:02] VITALS: BP 108/59
[2018-09-05] MEDS: CEFTRIAXONE PMX 2GM/50ML 50 ML IV SCH (13:28)
[2018-09-05] MEDS: ENOXAPARIN 40 MG/0.4 ML SQ SCH (13:28)
[2018-09-05 14:54] VITALS: BP 120/75
[2018-09-05] MEDS: PROPRANOLOL 10 MG TABLET PO SCH (19:54)
[2018-09-05 20:05] VITALS: BP 125/75
[2018-09-06 02:10] VITALS: BP 121/72
[2018-09-06] MEDS: OXYcodone IR 5MG TABLET PO PRN ×4 (02:20→17:47)
[2018-09-06 04:55] LABS: MEAN CORPUSCULAR HEMOGLOBIN 29.2 pg (27.0-34.8); MEAN CORPUSCULAR HGB CONC 33.7 g/dL (32.4-35.8); MEAN CORPUSCULAR VOLUME 86.6 fL (80-100); MEAN PLATELET VOLUME 8.5 fL (7.4-10.4); PLATELET COUNT 327 x10^3/uL (130-400); RED BLOOD COUNT 4.05 x10^6/uL (3.82-5.3); RED CELL DISTRIBUTION WIDTH 16.4 % (9.6-15.2)
[2018-09-06 04:56] LABS: ALBUMIN 2.1 g/dL (3.4-5.0); ANION GAP 6 mmol/L (5-15); CALCIUM 7.9 mg/dL (8.5-10.1); CHLORIDE 111 mmol/L (98-107)
[2018-09-06 04:59] LABS: ALANINE AMINOTRANSFERASE 21 U/L (12-78); ALKALINE PHOSPHATASE 108 U/L (45-117); BILIRUBIN,TOTAL 0.5 mg/dL (0.2-1.0); CREATININE 0.51 mg/dL (0.55-1.02)
[2018-09-06 05:45] LABS: MD YES
[2018-09-06 05:47] LABS: <PLATELET ESTIMATE> ADEQUATE; <PLT MORPHOLOGY> NORMAL PLT MORPH; BAND#(MANUAL) 0.35 x10^3/uL; BANDS%(MANUAL) 2 % (0-7); EOS#(MANUAL) 0.18 x10^3/uL (0.0-0.4); EOS% (MANUAL) 1 % (1-7); LYMPH#(MANUAL) 4.58 x10^3/uL (1-3.4); LYMPHS% (MANUAL) 26 % (22-44); METAMYELOCYTES% (MANUAL) 4 % (0-1); MONOS#(MANUAL) 2.11 x10^3/uL (0.3-2.7); MONOS% (MANUAL) 12 % (2-9); MYELOCYTES# (MANUAL) 0.18 x10^3/uL (0-0); MYELOCYTES% (MANUAL) 1 % (0-0); SEGS% (MANUAL) 54 % (42-75)
[2018-09-06 05:48] LABS: ANISOCYTOSIS 1+; POLYCHROMASIA 1+
[2018-09-06] MEDS: GABAPENTIN 300 MG CAPSULE PO PRN (07:39)
[2018-09-06] MEDS: INSULIN LISPRO 100 UNITS/ML, PEN SQ-INSULIN SCH ×3 (07:40→16:42)
[2018-09-06 08:20] VITALS: BP 115/70
[2018-09-06] MEDS: NEUTRA PHOS K 250 MG TABLET PO SCH ×3 (09:33→16:42)
[2018-09-06] MEDS: ENOXAPARIN 40 MG/0.4 ML SQ SCH (13:26)
[2018-09-06] MEDS: CEFTRIAXONE PMX 2GM/50ML 50 ML IV SCH (13:26)
[2018-09-06 13:29] VITALS: BP 120/78
[2018-09-06] MEDS ORDERED: METR500T PO (15:39)
[2018-09-06] MEDS ORDERED: CEFD300C37 PO (15:39)
[2018-09-06 16:19] VITALS: BP 109/74
== END 2018-09-06 14:50 | disposition home or self-care (01) | DRG 853 ==
LOC: ED 08-31 00:34 → 4NOR 08-31 02:35
PROVIDERS: ADMIT Family Medicine; ATTEND Family Medicine
PROC: 0FN44ZZ Release Gallbladder, Percutaneous Endoscopic Approach (ICD-10-PCS; 2018-08-31)
PROC: 0FT44ZZ Resection of Gallbladder, Percutaneous Endoscopic Approach (ICD-10-PCS; principal; 2018-08-31 12:00)
DX: A41.50 Gram-negative sepsis, unspecified (principal); J96.20 Acute and chronic respiratory failure, unspecified whether with hypoxia or hypercapnia; K80.00 Calculus of gallbladder with acute cholecystitis without obstruction; I47.1 Supraventricular tachycardia; N17.9 Acute kidney failure, unspecified; K82.A2 Perforation of gallbladder in cholecystitis; E03.9 Hypothyroidism, unspecified; E11.40 Type 2 diabetes mellitus with diabetic neuropathy, unspecified; E78.5 Hyperlipidemia, unspecified; E87.6 Hypokalemia; J44.9 Chronic obstructive pulmonary disease, unspecified; K21.9 Gastro-esophageal reflux disease without esophagitis; Z79.4 Long term (current) use of insulin; Z79.891 Long term (current) use of opiate analgesic; Z90.49 Acquired absence of other specified parts of digestive tract
CPT/HCPCS: 36415; 74176; 74177; 76700; 80053; 80061; 81003; 82962; 83036; 83605; 83690; 83735; 84100; 84145; 84443; 84484; 85025; 85610; 85730; 87040; 87076; 87324; 88304; 93005; 96361; 96365; 96375; 96376; G0378; J0696; J1100; J1170; J1650; J1956; J2405; J2704; J2710; J3010; Q9967; C1760; J0330; J1815; J2370; J3490; J7030; J7120

== ENCOUNTER 2018-12-27 18:35 | Emergency (ER) | payer MEDICARE, MEDICAID ==
[~2018-12-27] VITALS: Ht 149.9 cm; Wt 57.0 kg
[2018-12-27 18:38] VITALS: BP 96/63
== END 2018-12-27 19:59 | disposition home or self-care (01) ==
LOC: ED 18:47
DX: S60.872A Other superficial bite of left wrist, initial encounter (principal); S60.871A Other superficial bite of right wrist, initial encounter; S90.474A Other superficial bite of right lesser toe(s), initial encounter; E78.00 Pure hypercholesterolemia, unspecified; E03.9 Hypothyroidism, unspecified; E11.9 Type 2 diabetes mellitus without complications; Z90.49 Acquired absence of other specified parts of digestive tract; W54.0XXA Bitten by dog, initial encounter; Y93.89 Activity, other specified; Y92.89 Other specified places as the place of occurrence of the external cause; Y99.8 Other external cause status
CPT/HCPCS: 90471; 90715